=== PATIENT | male | born 1950 | race Caucasian/White ===

== ENCOUNTER 2016-03-30 17:03 | Inpatient (IN) | payer OTHER ==
[~2016-03-30] VITALS: Ht 172.7 cm; Wt 104.3 kg
--- NOTE | ~2016-03-30 | 2DMMODE ---
[facility] [place] [address] 2 D/M-MODE ECHOCARDIOGRAM Name: MILANVALENTIN Sabrina Room #: 432-P [facility] IN .R.#: [id number] Admission: 03/30/16 Attend Phys: Tree Lin Discharge: Date of : 52 Date of Service: 03/31/16 1351 Report #: [id number] THIS REPORT FOR: //name// Transthoracic Echocardiography Ordering physician: Milka Ramachandran Referring physician: Les Bhagat Kate E. Informatics Specialist: Amy Merino Indications/History: Dyspnea, possible PE BP: 150 / HR: 70bpm Height: 68in Weight: 230.5lb 87 Study data: M-mode, complete 2D, complete spectral Doppler, and color Doppler. Location: Echo laboratory. Routine. Image quality was adequate. 2D measurements Normal Normal LVID ED 60.5mm 36-57 IVS ED 10.2mm 6-11 LVID ES 43.2mm 23-40 LVPW ED 10.9mm 6-11 LA volume 24ml/m2 16-28 AoRoot diam 36.7mm 21-37 index ED LVOT diameter 23mm 18-23 Findings: Left ventricle: The cavity size was normal. Wall thickness was normal. Systolic function was normal. Wall motion was normal. Right ventricle: The cavity size was mildly dilated. Systolic function was normal. Right atrium: The atrium was at the upper limits of normal in size. Left atrium: The atrium was at the upper limits of normal in size. Volume index: 24ml/m2 (S). Aortic valve: Mildly thickened, mildly calcified leaflets. Doppler: There was no stenosis. No regurgitation. Peak velocity: 124.5cm/s (S). [address] [address] 2 D/M-MODE ECHOCARDIOGRAM Name: VALENTIN MILAN Room #: 432-P [facility] IN M.R.#: [id number] Admission: 03/30/16 Attend Phys: Tree Lin Discharge: Date of : 52 Date of Service: 03/31/16 1351 Report #: [id number] Mitral valve: Structurally normal valve. Doppler: There was no evidence for stenosis. No regurgitation. Peak E-wave velocity: 50cm/s. Peak A-wave velocity: 65.4cm/s. Tricuspid valve: Structurally normal valve. Doppler: There was no evidence for stenosis. Trivial regurgitation. Regurgitant peak velocity: 274cm/s. Peak RV-RA gradient: 30mm Hg (S). Pulmonic valve: Structurally normal valve. Doppler: There was no evidence for stenosis. Trivial regurgitation. Pericardium: There was no pericardial effusion. Aorta: Aortic root: The aortic root was normal in size. Pulmonary artery: Systolic pressure was estimated to be 35mm Hg. Diastolic function: Doppler parameters are consistent with abnormal left ventricular relaxation (grade 1 diastolic dysfunction). Systemic veins: Inferior vena cava: The vessel was normal in size; the respirophasic diameter changes were in the normal range (= 50%). Conclusions 1. Left ventricle: Systolic function was normal. Wall motion was normal. Doppler parameters are consistent with abnormal left ventricular relaxation (grade 1 diastolic dysfunction). 2. Aortic valve: Mildly thickened, mildly calcified leaflets. There was no stenosis. No regurgitation. 3. Mitral valve: Structurally normal valve. No regurgitation. 4. Pulmonary arteries: Systolic pressure was estimated to be 35mm Hg. 5. Pericardium, extracardiac: There was no pericardial effusion. <ELECTRONICALLY SIGNED> By: Rajendra Yates MD, [facility] 03/31/16 1442 1351 144 Rajendra Yates MD, [facility] /ashish
--- NOTE | ~2016-03-30 | EKG ---
[place] [address] [place] [address] ELECTROCARDIOGRAM REPORT Name: MILANVALENTIN Room #: 432-P ADM IN M.R.#: [id number] Admission: 03/30/16 Attend Phys: Tj Spicer MD Discharge: Date of : 52 Report #: [id number] THIS REPORT FOR: //name// [facility] ED Test Date: 2016-03-30 Test Time: 20:49:28 Pat Name: VALENTIN MILAN Department: Room: [facility] Gender: M Pulp Maker: TY : 1950 Requested By: Robert Poon Order Number: [id number] MD: Rajendra Yates Measurements Intervals [place] Rate: 77 P: 62 AK: 170 QRS: -36 QRSD: 122 T: 21 QT: 426 QTc: 483 Interpretive Statements Sinus rhythm Nonspecific IVCD with LAD Left ventricular hypertrophy No previous ECG available for comparison Electronically Signed On 03-31-2016 7:44:58 LAW OFFICE RECEPTIONIST by Rajendra Yates [email or web address] <ELECTRONICALLY SIGNED> By: Rajendra Yates MD, [facility] 03/31/16 0744 2049 48 Rajendra Yates MD, FACC /EPI
--- NOTE | ~2016-03-30 | EKG ---
[address] [place] [address] ELECTROCARDIOGRAM REPORT Name: MILANVALENTIN Room #: 432-P ADM IN M.R.#: [id number] Admission: 03/30/16 Attend Phys: Tj Spicer MD Discharge: Date of : 52 Report #: [id number] THIS REPORT FOR: //name// [facility] ED Test Date: 2016-03-30 Test Time: 17:12:43 Pat Name: VALENTIN MILAN Department: Room: [facility] Gender: M Ethologist: BLAKE : 1950 Requested By: Robert Poon Order Number: [id number] MD: Rajendra Yates Measurements Intervals [place] Rate: 68 P: SD: QRS: -29 QRSD: 124 T: 11 QT: 454 QTc: 483 Interpretive Statements Normal sinus rhythm Early R-wave progression Nonspecific T wave abnormality No previous ECG available for comparison Electronically Signed On 03-31-2016 7:36:21 ENTRY LEVEL ACCOUNT MANAGER by Rajendra Yates [email or web address] <ELECTRONICALLY SIGNED> By: Rajendra Yates MD, [facility] 03/31/16 0736 1712 171 Rajendra Yates MD, FACC /EPI
--- NOTE | ~2016-03-30 | EKG ---
[place] [address] [facility] [place] [address] ELECTROCARDIOGRAM REPORT Name: MILANVALENTIN Room #: 432-P ADM IN M.R.#: [id number] Admission: 03/30/16 Attend Phys: Tj Spicer MD Discharge: Date of : 52 Report #: [id number] THIS REPORT FOR: //name// [facility] ED Test Date: 2016-03-30 Test Time: 17:26:53 Pat Name: VALENTIN MILAN Department: Room: [facility] Gender: M Neurosurgeon: ONEL : 1950 Requested By: Robert Poon Order Number: [id number] MD: Rajendra Yates Measurements Intervals [place] Rate: 70 P: 59 NH: 180 QRS: -32 QRSD: 129 T: 12 QT: 434 QTc: 469 Interpretive Statements Sinus rhythm Early R-wave progression Baseline wander in lead(s) V2 No previous ECG available for comparison Electronically Signed On 03-31-2016 7:37:19 PIPELINE CONSTRUCTION INSPECTOR by Rajendra Yates [email or web address] <ELECTRONICALLY SIGNED> By: Rajendra Yates MD, [facility] 03/31/16 0737 25 25 Rajendra Yates MD, [facility] /EPI
[2016-03-30 17:04] VITALS: BP 143/82
[2016-03-30 18:03] LABS: ABSOLUTE NEUTROPHILS 5.5 thou/uL (1.4-8.2); BASOPHILS 0.6 % (0.0-2.0); EOSINOPHILS 1.2 % (0.0-3.0); HEMATOCRIT 41.5 % (42.0-52.0); HEMOGLOBIN 14.3 gm/dL (14.0-18.0); LYMPHOCYTES 16.7 % (24.0-44.0); MANUAL DIFF NO; MCH 32.7 pg (26.0-34.0); MCHC 34.5 % (28.0-37.0); MCV 94.7 fL (80.0-100.0); MONOCYTES 6.1 % (1.0-8.0); PLATELET COUNT 214 thou/uL (150-400); POLYS 75.4 % (36.0-66.0); RBC 4.38 mil/uL (4.50-6.00); RDW 13.3 % (10.5-14.5); WBC 7.2 thou/uL (4.0-11.0)
[2016-03-30] MEDS ORDERED: NORVASC5 MG PO (18:10)
[2016-03-30] MEDS ORDERED: BENICAR40 MG PO (18:10)
[2016-03-30] MEDS ORDERED: BYSTOLIC 5 MG5 M1 PO (18:11)
[2016-03-30] MEDS ORDERED: CARDURA4 MG PO (18:11)
[2016-03-30] MEDS ORDERED: LOVASTATIN 20 M20 MG PO (18:12)
[2016-03-30] MEDS ORDERED: GEMFIBROZIL 60600 M1 PO (18:12)
[2016-03-30] MEDS ORDERED: OMEGA 3 1,0001 EACH PO (18:13)
[2016-03-30] MEDS ORDERED: TORSEMIDE5 MG PO (18:14)
[2016-03-30] MEDS ORDERED: VITAMIN D 5050000 I1 PO (18:14)
[2016-03-30] MEDS ORDERED: SINGULAIR 10 MG10 M1 PO (18:14)
[2016-03-30 18:26] LABS: ANION GAP 6 mmol/L (7-16); BUN 18 mg/dL (7-18); CALCIUM 9.5 mg/dL (8.5-10.1); CHLORIDE 100 mmol/L (98-107); CO2 33 mmol/L (21-32); CREATININE 0.9 mg/dL (0.6-1.3); GLUCOSE 126 mg/dL (70-99); POTASSIUM 3.6 mmol/L (3.5-5.1); SODIUM 139 mmol/L (136-145); TROPONIN-I < 0.04 ng/mL (<0.04-0.07)
[2016-03-30 19:28] LABS: ABG SAMPLE TYPE ARTERIAL; BE(vivo) 3.6 mmol/L (-2 to +3); HCO3 29.3 mmol/L (22.0-26.0); LACTATE 1.17 mmol/L (0.5-2.0); O2(CT) 18.9 mL/dL (15.0-23.0); O2Hb 93.7 % (92.0-98.0); PO2 76.1 mmHg (80.0-100.0); pH 7.403 (7.360-7.450); sO2 95.2 % (92.0-98.0); tCO2 30.7 mmol/L (24.0-30.0)
[2016-03-30 19:29] LABS: STICK SITE L.RADIAL
[2016-03-30 22:43] VITALS: BP 158/86
[2016-03-30 23:15] VITALS: BP 149/84
[2016-03-31 04:30] VITALS: BP 130/65
[2016-03-31 08:26] VITALS: BP 150/87
[2016-03-31 16:07] VITALS: BP 153/94
[2016-03-31 18:11] VITALS: BP 153/94
== END 2016-03-31 22:42 | disposition home or self-care (01) | DRG 866 ==
LOC: ER 17:03 → EROBS 21:37 → 4E 21:37
PROVIDERS: Nurse Practitioner
DX: B34.9 Viral infection, unspecified (principal); R42 Dizziness and giddiness; R06.00 Dyspnea, unspecified; R09.02 Hypoxemia; I10 Essential (primary) hypertension; E78.5 Hyperlipidemia, unspecified; E78.00 Pure hypercholesterolemia, unspecified; Z80.8 Family history of malignant neoplasm of other organs or systems; Z82.49 Family history of ischemic heart disease and other diseases of the circulatory system; Z81.1 Family history of alcohol abuse and dependence; Z79.899 Other long term (current) drug therapy; Z23 Encounter for immunization
CPT/HCPCS: 10183

== ENCOUNTER → 2016-08-25 | Outpatient (CLI) | payer OTHER ==
[~2016-08-25] MED LIST: BENICAR40 MG PO; BYSTOLIC 5 MG5 M1 PO; CARDURA4 MG PO; GEMFIBROZIL 60600 M1 PO; LOVASTATIN 20 M20 MG PO; NORVASC5 MG PO; OMEGA 3 1,0001 EACH PO; SINGULAIR 10 MG10 M1 PO; TORSEMIDE5 MG PO; VITAMIN D 5050000 I1 PO
--- NOTE | ~2016-08-25 | EKG ---
[address] [place] [address] ELECTROCARDIOGRAM REPORT Name: VALENTIN MILAN Room #: [facility]#: [id number] Admission: 08/25/16 Attend Phys: Carla Saleh MD Discharge: Date of : 52 Report #: [id number] THIS REPORT FOR: //name// [facility] Test Date: 2016-08-25 Test Time: 14:10:57 Pat Name: VALENTIN MILAN Department: Room: Gender: Web Mobile Designer: Melissa STEIN : 1950 Requested By: Carla Saleh Order Number: [id number] MD: Rajendra Yates Measurements Intervals [place] Rate: 60 P: 49 DC: 170 QRS: -46 QRSD: 120 T: 6 QT: 441 QTc: 441 Interpretive Statements Sinus rhythm Left anterior fascicular block Compared to ECG 03/30/2016 20:49:28 No significant change was found Electronically Signed On 08-27-2016 7:52:27 CDT by Rajendra Yates [email or web address] <ELECTRONICALLY SIGNED> By: Rajendra Yates MD, [facility] 08/27/16 0752 1410 1410 Rajendra Yates MD, [facility] /EPI
== END ==
LOC: CV 13:00
DX: Z01.818 Encounter for other preprocedural examination (principal); I10 Essential (primary) hypertension

== ENCOUNTER → 2017-05-12 | Outpatient (CLI) | payer OTHER ==
[~2017-05-12] MED LIST changes: +CALCIUM CITRAT250 MG PO; +COZAAR 50 MG TA50 M2 PO; +HYDROCHLOROTHIA25 M2 PO; +IBUPROFEN200 M1 PO; +KLOR-CON 1010 MEQ PO; +LIPITOR 20 MG T20 M1 PO; +LOPRESSOR25 PO; +LOVAZA1000 MG PO; +NEURONTIN 300300 M1 PO; +NORCO 7.5-3251 EACH PO; +SLO-NIACIN250 MG PO; +THERA-M1 EAC1 PO; +VIAGRA100 MG PO; +VITAMIN D35000 UNI1 PO; +VITAMINC500 PO
== END ==
LOC: CAT 15:18
DX: R31.9 Hematuria, unspecified (principal)

== ENCOUNTER → 2017-05-31 | Outpatient (CLI) | payer OTHER ==
[~2017-05-31] MED LIST changes: -HYDROCHLOROTHIA25 M2 PO; -IBUPROFEN200 M1 PO; -LOVAZA1000 MG PO; -NEURONTIN 300300 M1 PO; -NORCO 7.5-3251 EACH PO; -SLO-NIACIN250 MG PO; -THERA-M1 EAC1 PO; -VIAGRA100 MG PO; -VITAMIN D35000 UNI1 PO
--- NOTE | ~2017-05-31 | EKG ---
[place] [address] [facility] [place] [address] ELECTROCARDIOGRAM REPORT Name: VALENTIN MILAN Room #: [facility]#: [id number] Admission: 05/31/17 Attend Phys: Morelia Farnsworth MD Discharge: Date of : 52 Report #: [id number] THIS REPORT FOR: //name// [facility] Test Date: 2017-05-31 Test Time: 09:56:45 Pat Name: VALENTIN MILAN Department: Room: Gender: M Business Teacher: SUKH : 1950 Requested By: Morelia Farnsworth Order Number: [id number] MD: Rajendra Yates Measurements Intervals [place] Rate: 64 P: 38 CT: 150 QRS: -38 QRSD: 121 T: 15 QT: 427 QTc: 441 Interpretive Statements Sinus rhythm Left anterior fascicular block Left ventricular hypertrophy Compared to ECG 08/25/2016 14:10:57 No significant change was found Electronically Signed On 05-31-2017 19:26:21 CDT by Rajendra Yates [email or web address] <ELECTRONICALLY SIGNED> By: Rajendra Yates MD, [facility] 05/31/17 1926 0956 Rajendra Yates MD, [facility] /EPI
== END | disposition home or self-care (01) ==
LOC: LITH 09:31
DX: N20.1 Calculus of ureter (principal); I10 Essential (primary) hypertension; E78.00 Pure hypercholesterolemia, unspecified; G47.33 Obstructive sleep apnea (adult) (pediatric); Z98.890 Other specified postprocedural states; Z79.899 Other long term (current) drug therapy

== ENCOUNTER 2017-09-28 18:12 | Emergency (ER) | payer OTHER ==
[~2017-09-28] VITALS: Ht 177.8 cm; Wt 108.9 kg
[2017-09-28] MEDS ORDERED: SLO-NIACIN250 MG PO (18:48)
== END 2017-09-28 19:10 | disposition home or self-care (01) ==
LOC: ER 18:12
DX: M70.21 Olecranon bursitis, right elbow (principal); S20.419A Abrasion of unspecified back wall of thorax, initial encounter; S40.212A Abrasion of left shoulder, initial encounter; I10 Essential (primary) hypertension; E78.5 Hyperlipidemia, unspecified; W01.0XXA Fall on same level from slipping, tripping and stumbling without subsequent striking against object, initial encounter; Y92.89 Other specified places as the place of occurrence of the external cause; Y93.89 Activity, other specified; Y99.8 Other external cause status

== ENCOUNTER → 2017-11-08 | Outpatient (CLI) | payer OTHER ==
[~2017-11-08] MED LIST changes: +SLO-NIACIN250 MG PO
== END ==
LOC: MRI 07:00
DX: M51.26 Other intervertebral disc displacement, lumbar region (principal); M48.062 Spinal stenosis, lumbar region with neurogenic claudication; I10 Essential (primary) hypertension; E78.5 Hyperlipidemia, unspecified

== ENCOUNTER → 2017-12-07 | Outpatient (CLI) | payer OTHER ==
[~2017-12-07] VITALS: Ht 175.3 cm; Wt 107.5 kg
[~2017-12-07] MED LIST changes: +HYDROCHLOROTHIA25 M2 PO; +IBUPROFEN200 M1 PO; +LOVAZA1000 MG PO; +NEURONTIN 300300 M1 PO; +NORCO 7.5-3251 EACH PO; +THERA-M1 EAC1 PO; +VIAGRA100 MG PO; +VITAMIN D35000 UNI1 PO
--- NOTE | ~2017-12-07 | HPC ---
[facility] [place] [address] PAIN MANAGEMENT CONSULTATION Name: VALENTIN MILAN Room #: REG [facility] Danilo.#: [id number] Admission: 12/07/17 Attend Phys: Jamel Walsh MD Discharge: Date of : 52 Report #: [id number] THIS REPORT FOR: //name// CC: Les Walsh DATE OF SERVICE: 12/07/2017 FOLLOW-UP COMPLAINT: "Here for epidural injection." FOLLOW-UP HISTORY: The patient is a 67-year-old gentleman who has been seen in the Pain Clinic because of pain and discomfort. He has been continued to have pain and discomfort, which has radiated down into his right leg. He rates his pain today as a 3/10. He describes it as a cramping, shooting, aching discomfort. He feels that it is going down into the right buttocks and into the lateral side of his leg. He notes it is worse when he is walking, standing, twisting. He feels it is less problematic when he is nonweightbearing. Denies any change in bowel or bladder dysfunction. He underwent an epidural steroid injection and has noted a 70% decrease in his discomfort. He has returned today for an additional injection. ALLERGIES: HYDROCODONE. MEDICATIONS: Ibuprofen 200 mg one p.o. q. eight hours, vitamin D3 5000 units, Viagra 100 mg, potassium 10 mEq, Niacin 250 mg, metoprolol 25 mg, Lipitor 20 mg, Cozaar 50 mg a - a total 100 mg daily, vitamin D 50,000 international units, Cardura 4 mg - a total of 8 mg daily, Norvasc 10 mg daily, gabapentin 300 mg one p.o. t.i.d. PAIN CLINIC ASSESSMENT: 1. The patient is not being treated for osteoarthritis or rheumatoid arthritis. 2. Height 5 feet 9 inches, weight 237 pounds, BMI is 35. 3. Vital signs: Blood pressure 160/83, pulse 63, respiratory rate 18, room air saturation is 94%. 4. Pain intensity: 05/21. 5. Fall risk: The patient has not fallen in the last 3 months. 6. Blood thinner: The patient is not on a blood thinning medication. 7. Hypertension: The patient is being treated for hypertension. 8. Opioid therapy greater than 6 weeks: The patient is not on an opioid contract. 9. Risk assessment tool: Low 3/0 risk for opioid use. 10. Functional assessment tool: 44/70. 11. Recreational drug use: The patient denies use of recreational drugs. 12. Tobacco: The patient has never smoked. 13. Alcohol: The patient [place] [address] PAIN MANAGEMENT CONSULTATION Name: VALENTIN MILAN ANASTACIA Room #: REG CLI [place]#: [id number] Admission: 12/07/17 Attend Phys: Jamel Walsh MD Discharge: Date of : 52 Report #: [id number] PHYSICAL EXAMINATION: GENERAL: The patient is a well-developed, well-nourished white male. He appears his stated age. He is alert and oriented x 3. His affect is appropriate. Speech is fluent. He is alert and oriented x 3. HEENT: Normocephalic, atraumatic. Extraocular eye muscles intact. Sclerae nonicteric. Mucous membranes are moist. NECK: Without JVD or adenopathy. LUNGS: Clear to auscultation without rhonchi or rales. HEART: Regular rate. ABDOMEN: Nontender. Bowel sounds present. MUSCULOSKELETAL: Upper extremity muscle strength 5/5 for the major muscle groups. Lower extremity muscle strength is judged to be 5/5 for the major muscle groups. The patient is without significant kyphosis, scoliosis, or lordosis. The patient has pain and discomfort that is radiating down into the right buttocks area and has pain and discomfort in the L5/4 distribution on the right side. IMPRESSION: 1. Lumbar radiculopathy, L4-L5 right, pain radiating down into the right leg. 2. Hypertension. 3. Renal stones. RECOMMENDATIONS: We discussed treatment options with the patient. Risks and benefits of an epidural steroid injection were again reviewed. Possible complications of the procedure were discussed. They could include but are not limited to infection, increased muscle soreness, headache, bleeding, worsening of pain, no improvement in pain, and the patient elects to proceed. PROCEDURE NOTE: The patient was assisted in getting on the examination table. His back was sterilely prepped with a Betadine solution. Anterior, posterior as well as lateral viewing with fluoroscopy was used. The patient's back was sterilely prepped at the right L4-L5 area using a right paraspinus approach. A 0.25% bupivacaine was infiltrated. A 17-gauge Tuohy with loss of resistance technique was used to gain access to the epidural space. There was no CSF, heme, or paresthesia. A total of 80 mg Depo-Medrol, 40 mg triamcinolone and 2 mL of 0.25% bupivacaine was injected. The patient's pain decreased from 3 to 0 at the time of discharge. He will follow up in the future as needed. The patient's was in accompaniment. <ELECTRONICALLY SIGNED> By: Jamel Walsh MD 12/26/17 1124 9720 1710 Jamel Walsh MD /reji
[2017-12-07 10:07] VITALS: BP 160/83
== END | disposition home or self-care (01) ==
LOC: PAIN 06:42
DX: M54.16 Radiculopathy, lumbar region (principal); G89.29 Other chronic pain; Z79.891 Long term (current) use of opiate analgesic; Z79.899 Other long term (current) drug therapy

== ENCOUNTER → 2018-06-26 | Outpatient (CLI) | payer OTHER | LOC: CAT 09:19 | DX: G31.9 Degenerative disease of nervous system, unspecified (principal); R41.82 Altered mental status, unspecified ==

== ENCOUNTER → 2018-06-30 | Outpatient (CLI) | payer OTHER | LOC: RAD 09:12 | DX: M47.812 Spondylosis without myelopathy or radiculopathy, cervical region (principal) ==

== ENCOUNTER → 2018-07-10 | Outpatient (CLI) | payer OTHER | LOC: MRI 08:43 | DX: M50.11 Cervical disc disorder with radiculopathy, high cervical region (principal); M47.22 Other spondylosis with radiculopathy, cervical region; M48.02 Spinal stenosis, cervical region; M25.78 Osteophyte, vertebrae ==

== ENCOUNTER 2018-10-05 07:20 | Emergency (ER) | payer OTHER ==
[~2018-10-05] VITALS: Ht 175.3 cm; Wt 95.3 kg
[2018-10-05] MEDS ORDERED: NAMENDA 5 MG TAB5 M1 PO (08:01)
[2018-10-05] MEDS ORDERED: ARICEPT 5 MG TAB5 MG PO (08:02)
[2018-10-05] MEDS ORDERED: CENTRUM SILVER1 EAC2 PO (08:03)
[2018-10-05 09:47] LABS: HEMATOCRIT 36.8 % (42.0-52.0); HEMOGLOBIN 12.5 gm/dL (14.0-18.0); MCH 33.9 pg (26.0-34.0); MCHC 34.1 g/dL (28.0-37.0); MCV 99.6 fL (80.0-100.0); RBC 3.7 mil/uL (4.50-6.00); RDW 13.9 % (10.5-14.5); WBC 4.9 thou/uL (4.0-11.0)
[2018-10-05 09:54] LABS: CALCIUM 8.9 mg/dL (8.5-10.1); CREATININE 0.8 mg/dL (0.7-1.3); POTASSIUM 3.4 mmol/L (3.5-5.1)
[2018-10-05 09:55] LABS: MAGNESIUM 1.9 mg/dL (1.8-2.4)
[2018-10-05 10:30] VITALS: BP 150/71
== END 2018-10-05 10:46 | disposition home or self-care (01) ==
LOC: ER 07:20
PROVIDERS: Emergency Medicine
DX: R20.2 Paresthesia of skin (principal); R20.0 Anesthesia of skin; Z88.5 Allergy status to narcotic agent

== ENCOUNTER → 2018-11-17 | Outpatient (CLI) | payer OTHER ==
[~2018-11-17] MED LIST changes: +ARICEPT 5 MG TAB5 MG PO; +CENTRUM SILVER1 EAC2 PO; +NAMENDA 5 MG TAB5 M1 PO
== END ==
LOC: MRI 09:37
DX: M51.16 Intervertebral disc disorders with radiculopathy, lumbar region (principal); M51.87 Other intervertebral disc disorders, lumbosacral region; M48.061 Spinal stenosis, lumbar region without neurogenic claudication; M47.26 Other spondylosis with radiculopathy, lumbar region

== ENCOUNTER → 2019-03-21 | Outpatient (CLI) | payer OTHER | LOC: MRI 14:38 | DX: S43.431A Superior glenoid labrum lesion of right shoulder, initial encounter (principal); M16.11 Unilateral primary osteoarthritis, right hip; G89.29 Other chronic pain; X58.XXXA Exposure to other specified factors, initial encounter; Y93.89 Activity, other specified; Y92.89 Other specified places as the place of occurrence of the external cause; Y99.8 Other external cause status ==

== ENCOUNTER → 2019-03-28 | Outpatient (CLI) | payer OTHER ==
[~2019-03-28] VITALS: Ht 167.6 cm; Wt 95.3 kg
[~2019-03-28] MED LIST changes: +MELOXICAM15 MG PO; +TOPROL XL25 MG PO
[2019-03-28 08:11] VITALS: BP 160/87
--- NOTE | 2019-03-28 08:38 | NUR ---
Pain Clinic Assessment: 1. History of Osteoarthritis: Right Upper Extremity R HIP History of Rheumatoid Arthritis: Not Applicable 2. Height: 5 ft. 6 in. 167.6 cm. Weight: 210.2 lb. oz. 95.346 kg. Patient's BMI: 33.9 3. Vital Signs: BP: 160/87 Pulse: 60 Resp: 16 Temp: 02 Sat: 97 ECG Mon: 4. Pain Intensity: 8-9 5. Fall Risk: Dizziness: N Needs help standing or walking: Y Fallen in the last 3 months: N Fall risk comments: 6. Patient on Blood Thinner: None 7. History of Hypertension: Y 8. Opioid Therapy greater than 6 weeks: N Opiate Contract Signed: 9. Risk Assessment Tool Provided: 3-LOW RISK 10. Functional Assessment Tool: 11. Recreational Drug Use: Never Drug Type: Tobacco Use: Never Smoker Tobacco Type: Amount or Packs/day: How Many Years: Alcohol Use: No Frequency: Quant:
== END | disposition home or self-care (01) ==
LOC: PAIN 06:44
DX: M54.16 Radiculopathy, lumbar region (principal); Z98.890 Other specified postprocedural states; Z79.899 Other long term (current) drug therapy; Z88.8 Allergy status to other drugs, medicaments and biological substances

== ENCOUNTER → 2019-04-27 | Outpatient (CLI) | payer OTHER ==
[~2019-04-27] VITALS: Ht 170.2 cm; Wt 98.4 kg
[2019-04-27 09:02] VITALS: BP 157/86
--- NOTE | 2019-04-27 09:09 | NUR ---
Pain Clinic Assessment: 1. History of Osteoarthritis: Right Upper Extremity R HIP History of Rheumatoid Arthritis: Not Applicable 2. Height: 5 ft. 7 in. 170.2 cm. Weight: 217.0 lb. oz. 98.431 kg. Patient's BMI: 34.0 3. Vital Signs: BP: 157/86 Pulse: 66 Resp: 18 Temp: 02 Sat: 100 ECG Mon: 4. Pain Intensity: 8 5. Fall Risk: Dizziness: N Needs help standing or walking: N Fallen in the last 3 months: N Fall risk comments: 6. Patient on Blood Thinner: None 7. History of Hypertension: Y 8. Opioid Therapy greater than 6 weeks: N Opiate Contract Signed: 9. Risk Assessment Tool Provided: 3-LOW RISK 10. Functional Assessment Tool: 11. Recreational Drug Use: Never Drug Type: Tobacco Use: Never Smoker Tobacco Type: Amount or Packs/day: How Many Years: Alcohol Use: No Frequency: Quant:
== END | disposition home or self-care (01) ==
LOC: PAIN 06:45
DX: M54.16 Radiculopathy, lumbar region (principal); G89.29 Other chronic pain; Z98.890 Other specified postprocedural states; Z79.899 Other long term (current) drug therapy

== ENCOUNTER → 2019-05-11 | Outpatient (CLI) | payer OTHER ==
[~2019-05-11] VITALS: Ht 170.2 cm; Wt 98.8 kg
[~2019-05-11] MED LIST changes: +ONDANSETRON HCL4 M2 PO; +PROTONIX 20 MG20 MG PO; +TRAMADOL 50 MG50 MG PO
[2019-05-11 12:41] VITALS: BP 162/89
--- NOTE | 2019-05-11 12:46 | NUR ---
Pain Clinic Assessment: 1. History of Osteoarthritis: Right Upper Extremity R HIP History of Rheumatoid Arthritis: Not Applicable 2. Height: 5 ft. 7 in. 170.2 cm. Weight: 217.8 lb. oz. 98.794 kg. Patient's BMI: 34.1 3. Vital Signs: BP: 162/89 Pulse: 80 Resp: 20 Temp: 02 Sat: 97 ECG Mon: 4. Pain Intensity: 4-5 5. Fall Risk: Dizziness: N Needs help standing or walking: N Fallen in the last 3 months: N Fall risk comments: 6. Patient on Blood Thinner: None 7. History of Hypertension: Y 8. Opioid Therapy greater than 6 weeks: N Opiate Contract Signed: 9. Risk Assessment Tool Provided: 3-LOW RISK 10. Functional Assessment Tool: 11. Recreational Drug Use: Never Drug Type: Tobacco Use: Never Smoker Tobacco Type: Amount or Packs/day: How Many Years: Alcohol Use: No Frequency: Quant:
--- NOTE | 2019-05-21 22:53 | HPC ---
[facility] [place] [address] PAIN MANAGEMENT CONSULTATION Name: VALENTIN MILAN Room #: REG [facility]#: [id number] Admission: 05/11/19 Attend Phys: Jamel Walsh MD Discharge: Date of : 52 Report #: [id number] THIS REPORT FOR: cc: Les Bhagat,Jamel Harris MD ~ CC: Les Walsh DATE OF SERVICE: 05/11/2019 CHIEF COMPLAINT: Low back pain. HISTORY: The patient is a 69-year-old gentleman who has been followed in the pain clinic because of chronic pain. He has undergone epidural steroid injection. After the last injection about a month ago, he did note some improvement in his pain. He rates his pain today as 4-5. Notes that the pain involves his right hip. Does note that when he walks that the pain can be problematic, bending over. He notes pain it radiates down to the lateral side of his leg into the calf area. He is noticing a decline in his memory. He is aware of the possibility of doing another epidural injection. At this point, he and his would like to try a conservative approach. ALLERGIES: HYDROCODONE. CURRENT MEDICATIONS: Metoprolol 25 mg, meloxicam 15 mg, multivitamins, Centrum Silver, Aricept 5 mg b.i.d., Namenda 5 mg b.i.d., potassium 10 mEq, metoprolol 25 mg b.i.d., Lipitor 20 mg, losartan 100 mg, Norvasc 5 mg. PAIN CLINIC ASSESSMENT/PQRS: 1. The patient has some pain in the right upper extremity as well as in the hip area. He is not being treated for rheumatoid arthritis. 2. Height 5 feet 6 inches, weight 217 pounds, BMI is 34.1. 3. Vital signs: Blood pressure 162/89, pulse 80, respiratory rate 20, room air saturation is 97%. 4. Pain intensity 4-510. 5. Fall risk. The patient has not fallen in the last 3 months. 6. Blood thinner. The patient is not on a blood thinning medication. 7. Hypertension. The patient is being treated for hypertension. 8. Opioids greater than 6 weeks. The patient is not on opioid regimen on a regular basis. 9. Risk assessment tool, low for opioid use. 10. Functional assessment tool 42/70. 11. Recreational drug use: The patient denies. 12. Tobacco: The patient has never smoked. 13. Alcohol. The patient denies use of alcoholic beverages. [address] [address] PAIN MANAGEMENT CONSULTATION Name: VALENTIN MILAN [id number] Admission: 05/11/19 Attend Phys: Jamel Walsh MD Discharge: Date of : 52 Report #: [id number] PHYSICAL EXAMINATION: GENERAL: The patient is a well-developed, well-nourished white male. Appears his stated age. He is alert and oriented x 3. His affect is appropriate. Speech is fluent. HEENT: Normocephalic. His is in attendance. She does provide part of his history. NECK: Without adenopathy or JVD. LUNGS: Clear to auscultation without rhonchi or rales. HEART: Regular rate. ABDOMEN: Nontender. Bowel sounds present. MUSCULOSKELETAL: Upper extremity muscle strength judged to be 5/5 for the major muscle groups in the upper extremity. The patient has some pain and discomfort that is radiating down his leg in the L4-L5 and L5-S1 dermatomal distribution. The pain is mostly on the right side that radiates down into the L4-L5 dermatomal distribution and down into his calf. Straight leg raise is positive. IMPRESSION: 1. Lumbar radiculopathy, L4-L5 dermatomal distribution with positive straight leg raise. 2. Hypertension. 3. History of renal disease. 4. Decreasing memory -- possible Alzheimer type. RECOMMENDATIONS: We discussed treatment options with the patient. Risks and benefits of an epidural steroid injection were discussed. His is present and engages with us during the discussion. At this point, he has not tried a pain medication. We will try tramadol 50 mg 1 p.o. t.i.d. If his pain continues to be problematic, he will return to the Pain Clinic, at which time we would then consider an epidural steroid injection. We would like to thank you for letting us participate in his care. We hope he continues to improve. <ELECTRONICALLY SIGNED> By: Jamel Walsh MD 05/21/19 2253 0921 34 Jamel Walsh MD /reji
== END ==
LOC: PAIN 06:53
DX: M54.16 Radiculopathy, lumbar region (principal); I10 Essential (primary) hypertension; Z79.891 Long term (current) use of opiate analgesic; Z79.1 Long term (current) use of non-steroidal anti-inflammatories (NSAID); Z79.899 Other long term (current) drug therapy

== ENCOUNTER 2019-05-12 10:46 | Emergency (ER) | payer OTHER ==
[~2019-05-12] VITALS: Ht 170.2 cm; Wt 97.5 kg
[~2019-05-12 10:46] MED LIST changes: -ONDANSETRON HCL4 M2 PO; -PROTONIX 20 MG20 MG PO
[2019-05-12] MEDS ORDERED: PROTONIX 20 MG20 MG PO (11:04)
[2019-05-12] MEDS ORDERED: TRAMADOL 50 MG50 MG PO (11:05)
[2019-05-12 11:06] LABS: ABSOLUTE NEUTROPHILS 10.2 thou/uL (1.4-8.2); BASOPHILS 0.3 % (0.0-2.0); EOSINOPHILS 0.2 % (0.0-3.0); HEMATOCRIT 44.2 % (42.0-52.0); HEMOGLOBIN 14.6 gm/dL (14.0-18.0); LYMPHOCYTES 12.1 % (24.0-44.0); MCH 33.4 pg (26.0-34.0); MCHC 32.9 g/dL (28.0-37.0); MCV 101.5 fL (80.0-100.0); MONOCYTES 5.6 % (1.0-8.0); PLATELET COUNT 272 thou/uL (150-400); POLYS 81.8 % (36.0-66.0); RBC 4.35 mil/uL (4.50-6.00); WBC 12.4 thou/uL (4.0-11.0)
[2019-05-12 11:16] LABS: CALCIUM 9.5 mg/dL (8.5-10.1); CREATININE 0.9 mg/dL (0.7-1.3); POTASSIUM 3.4 mmol/L (3.5-5.1)
[2019-05-12 11:22] LABS: ALBUMIN 3.9 g/dL (3.4-5.0); TOTAL BILIRUBIN 0.9 mg/dL (<0.1-1.0); TOTAL PROTEIN 7.1 g/dL (6.4-8.2)
[2019-05-12 11:41] LABS: URINE BILIRUBIN NEGATIVE (Negative); URINE BLOOD TRACE (Negative); URINE CLARITY CLEAR; URINE COLOR YELLOW; URINE GLUCOSE-RANDOM* NEGATIVE (Negative); URINE KETONES 1+ (Negative); URINE LEUKOCYTES-REFLEX NEGATIVE (Negative); URINE NITRITE-REFLEX NEGATIVE (Negative); URINE PROTEIN (DIPSTICK) NEGATIVE (Negative); URINE SPECIFIC GRAVITY 1.015 (1.005-1.035); URINE UROBILINOGEN 0.2 E.U./dl (0.2-1.0)
[2019-05-12 13:31] VITALS: BP 155/78
[2019-05-12] MEDS ORDERED: ONDANSETRON HCL4 M2 PO (13:31)
== END 2019-05-12 13:31 | disposition home or self-care (01) ==
LOC: ER 10:46
PROVIDERS: Emergency Medicine; Nurse Practitioner
DX: R11.2 Nausea with vomiting, unspecified (principal); Z88.5 Allergy status to narcotic agent

== ENCOUNTER → 2019-11-07 | Outpatient (CLI) | payer OTHER ==
[~2019-11-07] MED LIST changes: +ONDANSETRON HCL4 M2 PO; +PROTONIX 20 MG20 MG PO
== END ==
LOC: LAB 13:49
PROVIDERS: ATTEND Family Medicine
DX: Z20.828 Contact with and (suspected) exposure to other viral communicable diseases (principal)

== ENCOUNTER 2020-06-19 11:52 | Emergency (ER) | payer OTHER ==
[~2020-06-19] VITALS: Ht 170.2 cm; Wt 99.8 kg
[2020-06-19] MEDS ORDERED: AUGMENTIN 875-1 EACH PO (13:27)
[2020-06-19 13:44] VITALS: BP 153/94
== END 2020-06-19 13:44 | disposition home or self-care (01) ==
LOC: ER 11:52
DX: S02.2XXA Fracture of nasal bones, initial encounter for closed fracture (principal); S01.512A Laceration without foreign body of oral cavity, initial encounter; I10 Essential (primary) hypertension; E78.5 Hyperlipidemia, unspecified; K21.9 Gastro-esophageal reflux disease without esophagitis; J32.9 Chronic sinusitis, unspecified; Z88.5 Allergy status to narcotic agent; Z79.899 Other long term (current) drug therapy; W01.0XXA Fall on same level from slipping, tripping and stumbling without subsequent striking against object, initial encounter; Y93.01 Activity, walking, marching and hiking; Y92.89 Other specified places as the place of occurrence of the external cause; Y99.9 Unspecified external cause status

== ENCOUNTER → 2021-01-23 | Outpatient (CLI) | payer OTHER ==
[~2021-01-23] VITALS: Ht 170.2 cm; Wt 105.6 kg
[~2021-01-23] MED LIST changes: +AUGMENTIN 875-1 EACH PO; +NAPROXEN500 MG PO; +ZOLOFT50 M1 PO
[2021-01-23 09:13] VITALS: BP 163/92
--- NOTE | 2021-01-23 09:38 | NUR ---
Pain Clinic Assessment: 1. History of Osteoarthritis: Right Upper Extremity R HIP History of Rheumatoid Arthritis: Not Applicable 2. Height: 5 ft. 7 in. 170.2 cm. Weight: 232.8 lb. oz. 105.598 kg. Patient's BMI: 36.5 3. Vital Signs: BP: 163/92 Pulse: 60 Resp: 16 Temp: 02 Sat: 96 ECG Mon: 4. Pain Intensity: 1 AT REST/ 6 ACTIVITY 5. Fall Risk: Dizziness: N Needs help standing or walking: N Fallen in the last 3 months: N Fall risk comments: 6. Patient on Blood Thinner: None 7. History of Hypertension: Y 8. Opioid Therapy greater than 6 weeks: N Opiate Contract Signed: 9. Risk Assessment Tool Provided: 3-LOW RISK 10. Functional Assessment Tool: 11. Recreational Drug Use: Never Drug Type: Tobacco Use: Never Smoker Tobacco Type: Amount or Packs/day: How Many Years: Alcohol Use: No Frequency: Quant:
== END | disposition home or self-care (01) ==
LOC: PAIN 09:00
PROVIDERS: ATTEND Anesthesiology Pain Medicine
DX: M54.16 Radiculopathy, lumbar region (principal); G89.29 Other chronic pain; I10 Essential (primary) hypertension; E78.5 Hyperlipidemia, unspecified; M19.90 Unspecified osteoarthritis, unspecified site; K21.9 Gastro-esophageal reflux disease without esophagitis; F03.90 Unspecified dementia, unspecified severity, without behavioral disturbance, psychotic disturbance, mood disturbance, and anxiety; Z98.890 Other specified postprocedural states; Z79.899 Other long term (current) drug therapy; Z88.8 Allergy status to other drugs, medicaments and biological substances

== ENCOUNTER → 2021-04-24 | Outpatient (CLI) | payer OTHER ==
[~2021-04-24] VITALS: Ht 170.2 cm; Wt 105.2 kg
[~2021-04-24] MED LIST changes: +SEROQUEL 25 MG25 MG PO; +ZOLOFT 50 MG TA50 MG PO
[2021-04-24 12:58] VITALS: BP 135/74
--- NOTE | 2021-04-24 13:07 | NUR ---
Pain Clinic Assessment: 1. History of Osteoarthritis: Right Upper Extremity R HIP History of Rheumatoid Arthritis: Not Applicable 2. Height: 5 ft. 7 in. 170.2 cm. Weight: 232.0 lb. oz. 105.235 kg. Patient's BMI: 36.3 3. Vital Signs: BP: 135/74 Pulse: 65 Resp: 20 Temp: 02 Sat: 94 ECG Mon: 4. Pain Intensity: 6-7 5. Fall Risk: Dizziness: N Needs help standing or walking: N Fallen in the last 3 months: Y Fall risk comments: 6. Patient on Blood Thinner: None 7. History of Hypertension: Y 8. Opioid Therapy greater than 6 weeks: N Opiate Contract Signed: 9. Risk Assessment Tool Provided: 3-LOW RISK 10. Functional Assessment Tool: 11. Recreational Drug Use: Never Drug Type: Tobacco Use: Never Smoker Tobacco Type: Amount or Packs/day: How Many Years: Alcohol Use: No Frequency: Quant:
== END | disposition home or self-care (01) ==
LOC: PAIN 06:57
PROVIDERS: ATTEND Anesthesiology Pain Medicine
DX: M54.16 Radiculopathy, lumbar region (principal); G89.29 Other chronic pain; M19.90 Unspecified osteoarthritis, unspecified site; Z98.890 Other specified postprocedural states; Z79.899 Other long term (current) drug therapy